=== PATIENT | male | born 1990 | race Caucasian/White ===

== ENCOUNTER 2018-09-16 10:02 | Emergency (ER) | payer OTHER ==
[2018-09-16] MEDS ORDERED: Sodium Chloride 0.9% 10 ML Syringe FLUSH PRN (11:11)
[2018-09-16] MEDS ORDERED: Sodium Chloride 0.9% 1,000 ML IV SCH (11:15)
--- NOTE | 2018-09-16 11:27 | EDM.PDOC ---
ED HPI GENERAL MEDICAL PROBLEM - General Chief Complaint: Fever Stated Complaint: FEVER/VOMITING Time Seen by Provider: 09/16/18 10:57 Source of Information: Reports: Patient, RN Notes Reviewed History Limitations: Reports: No Limitations - History of Present Illness INITIAL COMMENTS - FREE TEXT/NARRATIVE: Patient is a 28-year-old male who presents to the ED for the evaluation of a fever, he states his fever has been present for around 3 days now. He notes that he's also had vomiting/diarrhea/lethargy/cough/body aches for the last 3 days as well. He did not get a flu shot this year. He has been doing cold showers, NyQuil and DayQuil, Tylenol and ibuprofen for symptomatic relief. He states that he has not had much appetite, he has ate some watermelon and some chicken broth and has been drinking water okay the last couple days. He states he is just felt more run down than he normally is. He has been trying to go to work. He states that he is okay at the beginning of the day but when he gets to the end of the day he is wiped out. Generalized Pain Score (Numeric/FACES): 5 - Related Data Allergies Allergy/AdvReac Type Severity Reaction Status Date / Time No Known Allergies Allergy Verified 09/16/18 10:16 Home Meds: Home Meds Ondansetron [Zofran ODT] 4 mg PO Q8H PRN #12 tab.dis 09/16/18 [Rx] Past Medical History - Past Health History Medical/Surgical History: Denies Medical/Surgical History Social & Family History - Tobacco Use Smoking Status *Q: Never Smoker - Caffeine Use Caffeine Use: Reports: Coffee - Recreational Drug Use Recreational Drug Use: No ED ROS ENT - Review of Systems Review Of Systems: See Below Constitutional: Reports: Fever, Chills, Malaise, Decreased Appetite HEENT: Reports: No Symptoms Respiratory: Reports: Cough. Denies: Shortness of Breath, Wheezing Cardiovascular: Reports: No Symptoms Endocrine: Reports: No Symptoms GI/Abdominal: Reports: Diarrhea, Nausea, Vomiting. Denies: Abdominal Pain, Constipation : Reports: No Symptoms Musculoskeletal: Reports: Other (myalgias) Neurological: Reports: No Symptoms Psychiatric: Reports: No Symptoms Hematologic/Lymphatic: Reports: No Symptoms Immunologic: Reports: No Symptoms ED EXAM, ENT - Physical Exam Exam: See Below Exam Limited By: No Limitations General Appearance: Alert, WD/WN, No Apparent Distress Eye Exam: Bilateral Eye: EOMI, Normal Inspection, PERRL Ears: Normal External Exam Nose: Normal Inspection Mouth/Throat: Normal Inspection, Normal Oropharynx (patient's breath has a mildy fruity odor to it.) Head: Atraumatic, Normocephalic Neck: Normal Inspection Respiratory/Chest: No Respiratory Distress, Lungs Clear, Normal Breath Sounds, No Accessory Muscle Use, Chest Non-Tender Cardiovascular: Normal Peripheral Pulses, Regular Rate, Rhythm, No Murmur GI/Abdominal: Normal Bowel Sounds, Soft, Non-Tender, No Distention Extremities: Normal Inspection, Normal Capillary Refill Neurological: Alert, Oriented, Normal Cognition, No Motor/Sensory Deficits Psychiatric: Normal Affect, Normal Mood Skin: Warm, Dry, Intact, Normal Color, No Rash Course - Vital Signs Last Recorded V/S: Last Vital Signs Temp 99.0 F 09/16/18 10:14 Pulse 75 09/16/18 10:14 Resp 16 09/16/18 10:14 BP 144/73 H 09/16/18 10:14 Pulse Ox 96 09/16/18 10:14 - Orders/Labs/Meds Orders: Active Orders 24 hr Category Date Time Status Peripheral IV Care [RC] . DIRECTED Care 09/16/18 11:12 Active Peripheral IV Insertion Adult [OM.PC] Routine Oth 09/16/18 11:11 Ordered Meds: Medications Discontinued Medications Generic Name Dose Route Start Last Admin Trade Name Freq PRN Reason Stop Dose Admin Sodium Chloride 1,000 mls @ 999 mls/hr 09/16/18 11:15 09/16/18 11:23 Normal Saline IV 999 mls/hr ASDIRECTED MARIANO Administration Sodium Chloride 10 ml 09/16/18 11:11 09/16/18 11:22 Saline Flush FLUSH 10 ml ASDIRECTED PRN Administration Keep Vein Open - Re-Assessments/Exams Free Text/Narrative Re-Assessment/Exam: 09/16/18 11:25 Patient presents to the ED for the evaluation of a fever and other cold-like symptoms. A flu swab was obtained by triage nurse, and this did return positive for influenza B. The patient is already taking Tylenol ibuprofen like he should be. There is no further change in management for this going forward. I have ordered the nurse to start in IV, and give him at least one bag of fluids for clinical dehydration at this time. Departure - Departure Time of Disposition: 12:17 Disposition: Home, Self-Care 01 Condition: Fair Clinical Impression: Influenza B Nausea & vomiting Qualifiers: Vomiting type: unspecified Vomiting Intractability: non-intractable Qualified Code(s): R11.2 - Nausea with vomiting, unspecified - Discharge Information *PRESCRIPTION DRUG MONITORING PROGRAM REVIEWED*: No *COPY OF PRESCRIPTION DRUG MONITORING REPORT IN PATIENT KSENIA: No Prescriptions: Ondansetron [Zofran ODT] 4 mg PO Q8H PRN #12 tab.dis PRN Reason: Nausea Instructions: Influenza, Adult, [id number], Nausea and Vomiting, Adult, Easy- to-Read Referrals: PCP,None [Primary Care Provider] - Forms: ED Department Discharge, ED Return to Work/School Form Additional Instructions: You have been evaluated in the ED for cold like symptoms and fever. You did test positive for influenza B. Please try to limit your exposure to others until you are 24 hours fever free without medications. You may Tylenol and ibuprofen, in an alternating fashion, every 6 hours as needed for general aches/fever. You have been given a prescription for oral Zofran, please take one tablet dissolvable under your tongue every 8 hours as needed for symptoms of nausea. This has been electronically sent to the [place] [facility] located in the [employer] grocery store. Recommend increased oral fluid intake as well and a bland diet until you can tolerate normal foods. Please return to the ED if your symptoms should change or worsen. - My Orders Last 24 Hours: My Active Orders 09/16/18 11:11 Peripheral IV Insertion Adult [OM.PC] Routine 09/16/18 11:12 Peripheral IV Care [RC] . DIRECTED - Assessment/Plan Last 24 Hours: My Active Orders 09/16/18 11:11 Peripheral IV Insertion Adult [OM.PC] Routine 09/16/18 11:12 Peripheral IV Care [RC] . DIRECTED
== END 2018-09-16 12:36 | disposition home or self-care (01) ==
LOC: JD.ED 10:02
DX: J10.1 Influenza due to other identified influenza virus with other respiratory manifestations (principal)
CPT/HCPCS: 87804; 96360; 99283; J7040